=== PATIENT | male | born 1950 | race Hispanic/Latino ===

== ENCOUNTER 2019-03-30 05:30 | Day surgery (SDC) | payer MEDICARE ==
[~2019-03-30] VITALS: Ht 180.3 cm; Wt 113.4 kg
[~2019-03-30 05:30] MED LIST: CLOP75TA14 PO; METF-446 PO; PEMB100V IV; ROSU40 PO
[2019-03-30] MEDS ORDERED: SODIUM CHLORIDE 0.9% 1000ML 1,000 ML IV ONE (05:50)
[2019-03-30 06:31] VITALS: BP 144/67
[2019-03-30] MEDS ORDERED: PROPOFOL 10 MG/ML 20ML VIAL IV ONE (07:48)
[2019-03-30 08:27] VITALS: BP 94/31
[2019-03-30 08:32] VITALS: BP 109/56
[2019-03-30 08:37] VITALS: BP 127/61
[2019-03-30 08:45] VITALS: BP 140/68
== END 2019-03-30 08:55 | disposition home or self-care (01) ==
LOC: DAH 05:30 → ENDO 05:30
PROVIDERS: ATTEND Internal Medicine
DX: Z12.11 Encounter for screening for malignant neoplasm of colon (principal); D12.3 Benign neoplasm of transverse colon; K63.5 Polyp of colon; D12.5 Benign neoplasm of sigmoid colon; D12.4 Benign neoplasm of descending colon; K64.0 First degree hemorrhoids; K57.30 Diverticulosis of large intestine without perforation or abscess without bleeding; I10 Essential (primary) hypertension; E66.9 Obesity, unspecified; E78.5 Hyperlipidemia, unspecified; E11.9 Type 2 diabetes mellitus without complications; I25.2 Old myocardial infarction; M19.90 Unspecified osteoarthritis, unspecified site; I25.10 Atherosclerotic heart disease of native coronary artery without angina pectoris; Z79.84 Long term (current) use of oral hypoglycemic drugs; Z79.899 Other long term (current) drug therapy; Z86.010 Personal history of colon polyps; Z85.528 Personal history of other malignant neoplasm of kidney; Z90.49 Acquired absence of other specified parts of digestive tract; Z95.1 Presence of aortocoronary bypass graft; Z90.5 Acquired absence of kidney
CPT/HCPCS: 45380; 45385; 82948 ×2; 88305; 93005; A4606; J2704; J7030

== ENCOUNTER → 2025-07-19 | Outpatient (CLI) | payer MEDICARE ==
[~2025-07-19] MED LIST changes: +CLOP-31 PO; -CLOP75TA14 PO
--- NOTE | 2025-07-19 21:51 | HMCIMG ---
X-RAY LUMBAR SPINE (4 VIEWS) Clinical Data: Radiculopathy. Technique: Standard lumbar spine radiographs including anteroposterior, lateral, and flexion-extension views. Findings: Alignment: Lumbar lordosis is reduced. There is grade I anterolisthesis of L3 over L4 without spondylolysis. Relative motion of the vertebral segments at L3-L4 measures 1.3 cm in neutral, 0.8 cm in flexion, and 1.1 cm in extension. Vertebral Bodies: Anterior and posterior marginal osteophytes are present at multiple levels. Endplate sclerosis is noted. No acute fracture is identified. Intervertebral Discs: Reduction of disc space height is seen at L3-L4 and L5-S1 levels. Facet Joints: Facet arthropathy is present at multiple levels. Soft Tissues and Vessels: Atheromatous calcification is noted in the abdominal aorta. Prevertebral soft tissues appear unremarkable. Impression * Grade I anterolisthesis of L3 over L4 without spondylolysis, with mild segmental instability on flexion/extension views. * Degenerative lumbar spondylosis with anterior and posterior marginal osteophytes, endplate sclerosis, facet arthropathy, and disc space narrowing at L3-L4 and L5-S1. * Atheromatous calcification of the abdominal aorta. * No acute fracture detected. Recommendation: * Correlate clinically with radicular symptoms. * Consider MRI of the lumbar spine if persistent or progressive neurological deficits are present. * Follow-up as clinically indicated. /Honobia
== END | disposition home or self-care (01) ==
LOC: RAH 11:00
PROVIDERS: ATTEND Physical Medicine & Rehabilitation
DX: M47.817 Spondylosis without myelopathy or radiculopathy, lumbosacral region (principal); M48.07 Spinal stenosis, lumbosacral region; M43.16 Spondylolisthesis, lumbar region; M25.78 Osteophyte, vertebrae; I70.0 Atherosclerosis of aorta
CPT/HCPCS: 72110